=== PATIENT | female | born 1965 | race Caucasian/White ===

== ENCOUNTER 2018-11-15 14:34 | Emergency (ER) | payer OTHER ==
[~2018-11-15] VITALS: Ht 167.6 cm; Wt 87.1 kg
[~2018-11-15 14:34] MED LIST: DENIES
[2018-11-15 14:50] VITALS: Ht 167.6 cm; Wt 87.1 kg
[2018-11-15] MEDS ORDERED: morphine 4 MG/ML VIAL IV STA (16:08)
[2018-11-15] MEDS ORDERED: SOD CHLORIDE 0.9% 1,000 ML IV STA (16:08)
[2018-11-15] MEDS ORDERED: ONDANSETRON 4 MG INJ IV STA (16:08)
--- NOTE | 2018-11-15 16:13 | ERD ---
ER Documentation Chief Complaint Chief Complaint RIGHT UQ ABD. PAIN, PAIN GOES TO BACK WITH N/V FOR A WEEK HPI This is a very pleasant 53-year-old female with no past medical history other than peptic ulcer disease that presents to the emergency department complaining of right upper quadrant pain for the past 7 days. The patient indicates that the pain is epigastric and origin and does radiate up to her right scapula and right upper quadrant. It has been intermittent. There is no alleviating or exacerbating factors to the pain. She states the pain will worsen to 10 out of 10 in intensity. She is felt nauseous but has not experienced any emesis. She did not take any analgesic medication for the pain. She said no diarrhea constipation. She is never had any similar pain prior to 1 week ago. She denies any recent travel. She has no chest pressure. She has no shortness of breath. The pain is a sharp shooting pain. ROS All systems reviewed and are negative except as per history of present illness. Medications Home Meds Active Scripts Ibuprofen* (Motrin*) 800 Mg Tab, 800 MG PO Q6H PRN for PAIN AND OR ELEVATED TEMP, #30 TAB Prov:RADHA HUI MD 11/15/18 Metronidazole* (Flagyl*) 500 Mg Tablet, 500 MG PO BID for 10 Days, TAB Prov:RADHA HUI MD 11/15/18 Ciprofloxacin Hcl* (Ciprofloxacin Hcl*) 500 Mg Tablet, 500 MG PO BID for 10 Days, TAB Prov:RADHA HUI MD 11/15/18 Reported Medications Omeprazole* (Omeprazole*) 20 Mg Capsule.dr, 20 MG PO DAILY, #30 CAP 11/15/18 Discontinued Reported Medications [Denies] No Conflict Check 06/16/10 Allergies Allergies: Coded Allergies: No Known Allergies (Verified Allergy, Mild, 11/15/18) PMhx/Soc History of Surgery: No Anesthesia Reaction: No Hx Neurological Disorder: No Hx Respiratory Disorders: No Hx Cardiac Disorders: No Hx Psychiatric Problems: No Hx Miscellaneous Medical Probl: No Hx Alcohol Use: No Hx Substance Use: No Hx Tobacco Use: No Physical Exam Vitals Vital Signs Date Temp Pulse Resp B/P (MAP) Pulse Ox O2 O2 Flow FiO2 Time Delivery Rate 11/15/18 68 18 117/82 98 Room Air 17:30 (94) 11/15/18 98.1 80 18 117/82 98 14:50 (94) Physical Exam Constitutional:Well-developed. Well-nourished. HEENT:Normocephalic. Atraumatic.Pupils were equal round reactive to light. Moist mucous membranes.No tonsillar exudates. Neck: No nuchal rigidity. No lymphadenopathy. No posterior cervical spine tenderness or step-offs. Respiratory: Not using accessory muscles of respiration.Lungs were clear to auscultation bilaterally. No rhonchi. No rales. No wheezing. Cardiovascular: Regular rate regular rhythm.No murmurs. No rubs were appreciated.S1, S2 normal. Distal pulses are palpable 2+ bilaterally. GI: Abdomen was soft. Right upper quadrant tenderness with negative Fishman sign. No tenderness in the right lower quadrant over McBurney's point psoas sign negative obturator sign negative non Distended. No pulsatile abdominal masses or bruits. No rebound. No guarding. Bowel sounds were present and normal. Muscle skeletal: Full range of motion of both the upper and lower extremities bilaterally.Normal muscle tone.No assymetrical calf tenderness or swelling. Skin: No petechia, no purpura. No lesions on the palms or the soles of the feet. No maculopapular rash. NEURO: Patient was alert, awake, orientated x3.No facial droop. Gait observed and normal with no ataxia.Speech had regular rate and rhythm. No focal neurological deficits. Result Diagram: 11/15/18 1621 11/15/18 1621 Results 24 hrs Laboratory Tests Test 11/15/18 16:21 11/15/18 18:20 White Blood Count 8.3 10^3/ul Red Blood Count 4.31 10^6/ul Hemoglobin 12.2 g/dl Hematocrit 38.6 % Mean Corpuscular Volume 89.6 fl Mean Corpuscular Hemoglobin 28.3 pg Mean Corpuscular Hemoglobin Concent 31.6 g/dl Red Cell Distribution Width 13.5 % Platelet Count 283 10^3/UL Mean Platelet Volume 10.0 fl Immature Granulocytes % 0.400 % Neutrophils % 56.8 % Lymphocytes % 35.4 % Monocytes % 6.0 % Eosinophils % 1.0 % Basophils % 0.4 % Nucleated Red Blood Cells % 0.0 /100WBC Immature Granulocytes # 0.030 10^3/ul Neutrophils # 4.7 10^3/ul Lymphocytes # 2.9 10^3/ul Monocytes # 0.5 10^3/ul Eosinophils # 0.1 10^3/ul Basophils # 0.0 10^3/ul Nucleated Red Blood Cells # 0.0 10^3/ul Prothrombin Time 13.3 Sec Prothrombin Time Ratio 1.0 INR International Normalized Ratio 1.00 Activated Partial Thromboplast Time 28.7 Sec Sodium Level 143 mmol/L Potassium Level 4.2 mmol/L Chloride Level 106 mmol/L Carbon Dioxide Level 27 mmol/L Anion Gap 10 Blood Urea Nitrogen 16 mg/dl Creatinine 0.66 mg/dl Est Glomerular Filtrat Rate mL/min > 60 mL/min Glucose Level 102 mg/dl Calcium Level 9.5 mg/dl Total Bilirubin 0.2 mg/dl Direct Bilirubin 0.00 mg/dl Indirect Bilirubin 0.2 mg/dl Aspartate Amino Transf (AST/SGOT) 20 IU/L Alanine Aminotransferase (ALT/SGPT) 25 IU/L Alkaline Phosphatase 100 IU/L Troponin I < 0.012 ng/ml Total Protein 7.9 g/dl Albumin 4.4 g/dl Globulin 3.50 g/dl Albumin/Globulin Ratio 1.25 Amylase Level 63 U/L Lipase 68 U/L Urine Color STRAW Urine Clarity CLEAR Urine pH 7.0 Urine Specific [place] 1.011 Urine Ketones NEGATIVE mg/dL Urine Nitrite NEGATIVE mg/dL Urine Bilirubin NEGATIVE mg/dL Urine Urobilinogen NEGATIVE mg/dL Urine Leukocyte Esterase 1+ Lizett/ul Urine Microscopic RBC 1 /HPF Urine Microscopic WBC 3 /HPF Urine Squamous Epithelial Cells FEW /HPF Urine Hemoglobin NEGATIVE mg/dL Urine Glucose NEGATIVE mg/dL Urine Total Protein NEGATIVE mg/dl Current Medications Medications Dose Sig/Eze Start Time Status Last (Trade) Ordered Route PRN Stop Time Admin Dose Reason Admin Sodium 1,000 ml @ Q1H STAT 11/15/18 DC 11/15/18 Chloride 1,000 mls/hr IV 16:08 16:48 11/15/18 17:07 Morphine 4 mg ONCE STAT 11/15/18 DC 11/15/18 Sulfate IV 16:08 16:48 (morphine) 11/15/18 16:11 Ondansetron 4 mg ONCE STAT 11/15/18 DC 11/15/18 HCl (Zofran IV 16:08 16:48 Inj) 11/15/18 16:11 IV Flush 10 ml STK-MED 11/15/18 DC 11/15/18 (NS 10 ml) ONCE .ROUTE 18:50 19:12 11/15/18 18:51 Sodium 100 ml @ ud STK-MED 11/15/18 DC 11/15/18 Chloride ONCE .ROUTE 18:50 19:12 11/15/18 18:51 Iohexol 150 ml STK-MED 11/15/18 DC 11/15/18 (Omnipaque ONCE .ROUTE 18:50 19:12 300mg/ ml) 11/15/18 18:51 Procedures/MDM The patient presented to the emergency department with epigastric pain. My diffe rential diagnosis included but was not limited to abdominal aortic aneurysm, choledocholithiasis, gallstone ileus, renal colic, pyelonephritis, pancreatitis, peptic ulcer disease, atypical myocardical infarction, mesenteric ischemia, GERD, pulmonary infarction. The patient was placed on a professional services consultant, continuous pulse oximetry and IV access was established by nursing staff. An EKG was obtained to rule out myocardial ischemia. There was no elevation of LFTs to suggest ductal obstruction, cholangitis, cholecystiitis or hepatitis. Given that the urinalysis did not show bilirubinuria, my suspicion for common duct obstruction or hepatitis was low. 12 Lead EKG tracing ordered and reviewed by myself showed: Normal sinus rhythm of 72 bpm and no arrhythmia. PA interval normal. QRS duration normal. No ST segment elevation No ST segment depression. No changes consistent with acute ischemia. I obtained an ultrasound of the gallbladder which was found to be normal. The patient's pain was now more prominent in the right lower quadrant. Therefore I did feel is necessary to obtain a CT scan of the abdomen. There is no evidence of appendicitis however there was Descending colon diverticulosis. Mild adjacent stranding of the mid descending colon which may represent mild diverticulitis. No evidence of perforation or abscess. Patient was observed for over 4 hours. She is a family history of hypertension or diabetes. She felt comfortable being discharged home with analgesic medication I also administered ciprofloxacin and Flagyl for the patient. Departure Diagnosis: Primary Impression: Diverticulitis Condition: RADHA Velasco MD Nov 15, 2018 16:13
[2018-11-15] MEDS ORDERED: OMEP20CA16 PO (16:21)
[2018-11-15] MEDS ORDERED: IOHEXOL 300MG/ML 150 ML BTL ONE (18:50)
[2018-11-15] MEDS ORDERED: SOD CHLORIDE 0.9% 100 ML ONE (18:50)
[2018-11-15] MEDS ORDERED: METR500T PO (20:55)
[2018-11-15] MEDS ORDERED: CIPR500T4 PO (20:55)
[2018-11-15] MEDS ORDERED: IBUP800T48 PO (20:55)
[2018-11-15 20:56] VITALS: BP 115/91; PULSE 65; RESP 16
== END 2018-11-15 21:18 | disposition home or self-care (01) ==
LOC: E/R 14:34
DX: K57.32 Diverticulitis of large intestine without perforation or abscess without bleeding (principal)
CPT/HCPCS: 74177; 76705; 80053; 81001; 82150; 83690; 84484; 85025; 85610; 85730; 87086; 93005; 96374; 96375; J2270; J2405; J7030; Q9967; Z7502; Z7610